=== PATIENT | male | born 1990 | race Caucasian/White ===

== ENCOUNTER 2016-04-16 17:20 | Emergency (ER) | payer SELFPAY ==
[~2016-04-16] VITALS: Ht 160 cm; Wt 52.0 kg
[2016-04-16 17:22] VITALS: BP 124/73; PULSE 92; RESP 12; TEMP 98.1; O2SAT 97
[2016-04-16 19:05] LABS: BLOOD, URINE NEG (NEG); COMMENT (UR) CULT NOT INDICATED; CULTURE IF INDICATED CULT NOT INDICATED; GLUCOSE,URINE NEG (NEG); KETONE, URINE NEG (NEG); NITRITE,URINE NEG (NEG); URINE COLOR YELLOW (YELLW/STRAW)
--- NOTE | 2016-04-16 19:47 | PD ---
HPI Chief Complaint: Flank/Kidney Pain Time Seen by Provider: 19:44 Travel History International Travel<30 days: No Contact w/Intl Traveler<30days: No Traveled to known affect area: No History of Present Illness HPI 25-year-old male presents to emergency Department with complaints of right flank pain. He states that he has been having pain on and off now for 8 months. He states the pain is intensified over the past 5 days. He has had some associated nausea and vomiting. He also states that the pain is very sharp and severe. It does radiate into his right abdomen. He has not noticed any increased frequency, dysuria or hematuria. He states the pain is a 9 out of 10 currently. There is no palliative activity. He denies any recent illness area no fever no chills. PFSH Past Medical History Medical History: Denies Significant Hx Immunizations Current: Yes Tetanus Vaccination: < 5 Years Influenza Vaccination: Yes Past Surgical History Narrative Surgical Appendectomy Social History Alcohol Use: No Tobacco Use: Yes Substance Use: No Allergies-Medications (Allergen,Severity, Reaction): Coded Allergies: No Known Allergies (Unverified , 04/16/16) Reported Meds & Prescriptions Reported Meds & Active Scripts Active Flexeril (Cyclobenzaprine HCl) 10 Mg Tab 10 Mg PO TID Diclofenac Sodium DR (Diclofenac Sodium) 75 Mg Tabdr 75 Mg PO BID Review of Systems Except as stated in HPI: all other systems reviewed are Neg Physical Exam Narrative GENERAL: Well-developed, well-nourished in no acute distress. Nontoxic appearing. HEAD: Normocephalic, atraumatic. EYES: Pupils equal round and reactive. Extraocular motions intact. No scleral icterus. No injection or drainage. ENT: TMs clear without erythema. The external auditory canals clear. Nose: clear . Posterior pharynx is pink and moist. No tonsillar edema or exudate. Uvula midline. Airway patent. NECK: Trachea midline.Supple, nontender, moves head freely. No central bony tenderness or spasm. CARDIOVASCULAR: Regular rate and rhythm without murmurs, gallops, or rubs. RESPIRATORY: Clear to auscultation. Breath sounds equal bilaterally. No wheezes , rales, or rhonchi. GASTROINTESTINAL: Abdomen soft, non-tender, nondistended. No hepato-splenomegaly , or palpable masses. No guarding. EXTREMITIES: No clubbing, cyanosis, or edema. No joint tenderness, effusion, or edema noted. BACK: Right paralumbar muscle tenderness without deformity or crepitance. No flank tenderness. Data Data Last Documented VS Vital Signs Date Time Temp Pulse Resp B/P Pulse Ox O2 Delivery O2 Flow Rate FiO2 04/16/16 19:23 16 04/16/16 17:22 98.1 92 124/73 97 Room Air Orders Urinalysis - C+S If Indicated (04/16/16 18:32) Ct Abd/Pel W/O Iv Contrast (04/16/16 19:40) Ibuprofen (Motrin) (04/16/16 22:45) Acetamin-Hydrocod 325-5 Mg ([place] 5-325 (04/16/16 22:45) Labs Laboratory Tests Test 04/16/16 18:40 Urine Color YELLOW Urine Turbidity CLEAR Urine pH 6.0 Urine Specific [place] 1.019 Urine Protein NEG mg/dL Urine Glucose (UA) NEG mg/dL Urine Ketones NEG mg/dL Urine Occult Blood NEG Urine Nitrite NEG Urine Bilirubin NEG Urine Urobilinogen LESS THAN 2.0 MG/DL Urine Leukocyte Esterase NEG Urine RBC 6 /hpf Urine WBC 1 /hpf Microscopic Urinalysis Comment CULT NOT INDICATED [facility] Medical Decision Making Medical Screen Exam Complete: Yes Emergency Medical Condition: Yes Medical Record Reviewed: Yes Interpretation(s) CT abdomen and pelvis: Nonobstructing right 2 mm right renal stone. No other acute pathology identified. Laboratory Tests Test 04/16/16 18:40 Urine Color YELLOW Urine Turbidity CLEAR Urine pH 6.0 Urine Specific [place] 1.019 Urine Protein NEG mg/dL Urine Glucose (UA) NEG mg/dL Urine Ketones NEG mg/dL Urine Occult Blood NEG Urine Nitrite NEG Urine Bilirubin NEG Urine Urobilinogen LESS THAN 2.0 MG/DL Urine Leukocyte Esterase NEG Urine RBC 6 /hpf Urine WBC 1 /hpf Microscopic Urinalysis Comment CULT NOT INDICATED Vital Signs Date Time Temp Pulse Resp B/P Pulse Ox O2 Delivery O2 Flow Rate FiO2 04/16/16 19:23 16 04/16/16 17:22 98.1 92 12 124/73 97 Room Air Differential Diagnosis MDM: High Differential diagnoses: AAA,Fracture, sprain, strain, HNP, nerve or vascular injury, epidural abscess, pilonidal cyst, pyelonephritis, UTI, nephrolithiasis, ureterolithiasis Narrative Course CT scan of the abdomen and pelvis show a nonobstructing right renal stone but no other acute pathology. Urinalysis shows only 6 RBCs otherwise unremarkable. Patient is given Lortab 5 mg and Motrin 800 mg by mouth. This is back pain, nephrolithiasis Diagnosis Primary Impression: Back pain Qualified Code: M54.5 - Chronic right-sided low back pain without sciatica Additional Impression: Right nephrolithiasis Patient Instructions: Narcotic given in the ED, General Instructions Departure Forms: Work Release Special Instructions: No work 2 days. Additional Instructions: Rest. Ice for the next 3 days followed by heat . Flexeril and Voltaren. Follow-up with a primary care doctor in 3-7 days. Return to the ER for emergencies. Med/Other Pt SpecificInfo: Prescription(s) given Scripts Cyclobenzaprine (Flexeril)10 Mg Tab10 Mg PO TID #30 TAB Prov:Winter Wayne DO 04/16/[address] 75 Mg Tabdr75 Mg PO BID #20 TAB Prov:Winter Wayne DO 04/16/16 Disposition: 01 DISCHARGE HOME Condition: Stable James Rodriguez Apr 16, 2016 19:47
[2016-04-16] MEDS ORDERED: CYCL1TAB29 PO (22:36)
[2016-04-16] MEDS ORDERED: DICL75TA PO (22:36)
--- NOTE | 2016-04-16 22:36 | RADRPT ---
EXAM DATE/TIME: 04/16/2016 20:32 [facility] COMPARISON: No previous studies available for comparison. INDICATIONS: Right low back and flank pain. Burning urination. ORAL CONTRAST: No oral contrast ingested. RADIATION DOSE: 5.93 CTDIvol (mGy) MEDICAL HISTORY: None SURGICAL HISTORY: None. ENCOUNTER: Initial ACUITY: 4 - 6 months PAIN SCALE: 6/10 LOCATION: Right flank TECHNIQUE: Volumetric scanning of the abdomen and pelvis was performed. Using automated exposure control and ad justment of the mA and/or kV according to patient size, radiation dose was kept as low as reasonably achievable to obtain optimal diagnostic quality images. FINDINGS: There is a 2 mm non-obstructing right renal stone seen. No hydronephrosis identified. The ureters a re normal bilaterally. The liver, spleen, pancreas and adrenal glands are normal for a non-contrast CT examination. The bow els unremarkable. The structures in the pelvis are unremarkable. The lung bases are clear. The bony st ructures are grossly intact. CONCLUSION: 1. A 2 mm non-obstructing right renal stone. Enoc Martinez MD on April 16, 2016 at 21:24 Board Certified Radiologist. This report was verified electronically.
[2016-04-16] MEDS ORDERED: ACETAMINOPHEN/HYDROcodone 325 MG/5 MG TAB PO ONE (22:45)
[2016-04-16] MEDS ORDERED: IBUPROFEN 800 MG TAB PO ONE (22:45)
== END 2016-04-16 23:10 | disposition home or self-care (01) ==
LOC: NEPB 17:20
DX: M54.5 Low back pain (principal); N20.0 Calculus of kidney; R11.2 Nausea with vomiting, unspecified; Z72.0 Tobacco use
CPT/HCPCS: 74176; 81001

== ENCOUNTER 2017-01-24 09:22 | Emergency (ER) | payer OTHER ==
[~2017-01-24] VITALS: Ht 157.5 cm; Wt 52.0 kg
[~2017-01-24 09:22] MED LIST: CYCL10TA PO; DICL75TA PO
[2017-01-24 09:25] VITALS: BP 126/67; PULSE 89; RESP 13; TEMP 98.8; O2SAT 99
[2017-01-24] MEDS ORDERED: RESP: LIDOCAINE HCL 4% PF 5 ML NEB NEB ONE (10:15)
[2017-01-24] MEDS ORDERED: predniSONE 20 MG TAB PO ONE (10:15)
[2017-01-24] MEDS ORDERED: RESP: ALBUTEROL 2.5 MG/IPRATROPIUM 0.5 MG NEB (SCH) NEB ONE (10:15)
--- NOTE | 2017-01-24 10:16 | PD ---
HPI Chief Complaint: Cold / Flu Symptoms Time Seen by Provider: 09:32 Travel History International Travel<30 days: No Contact w/Intl Traveler<30days: No Traveled to known affect area: No History of Present Illness HPI The patient is a 26-year-old male from [place] who presents to the emergency department for chest pain and cough. The patient states he moved to the local area from [place] one year ago. He notes a 2 week history of productive cough producing white sputum, anterior chest wall pain worse with coughing, and wheezing. The patient does have a history of tobacco use and marijuana use, denies any history of chronic underlying pulmonary conditions. He has had subjective fevers at home, denies any associated nausea, vomiting, abdominal pain, diarrhea, or myalgias. Symptoms are moderate, there are no current alleviating or exacerbating factors. [facility] Past Medical History Medical History: Denies Significant Hx Immunizations Current: Yes Past Surgical History Appendectomy: Yes Social History Alcohol Use: No Tobacco Use: Yes Substance Use: No Allergies-Medications (Allergen,Severity, Reaction): Coded Allergies: No Known Allergies (Unverified Adverse Reaction, Unknown, 01/24/17) Reported Meds & Prescriptions Reported Meds & Active Scripts Active No Active Prescriptions or Reported Medications Review of Systems Except as stated in HPI: all other systems reviewed are Neg General / Constitutional: Positive: Fever (subjective) Cardiovascular: Positive: Chest Pain or Discomfort (worse with coughing) Respiratory: Positive: Cough, Shortness of Breath, Wheezing Gastrointestinal: No: Nausea, Vomiting, Abdominal Pain Musculoskeletal: No: Weakness Neurologic: No: Dizziness Physical Exam Narrative GENERAL: Awake, alert, pleasant 26-year-old male who appears his stated age and is in no acute respiratory distress. SKIN: Focused skin assessment warm/dry. HEAD: Atraumatic. Normocephalic. EYES: Pupils equal and round. No scleral icterus. No injection or drainage. ENT: No nasal bleeding or discharge. Cobblestoning of posterior [place] but no exudate noted. NECK: Trachea midline. No JVD. CARDIOVASCULAR: Regular rate and rhythm. No murmur appreciated. Heart rate in the 80s. Palpation the chest wall reproduces symptoms. RESPIRATORY: No accessory muscle use. Few scattered wheezes. GASTROINTESTINAL: Abdomen soft, non-tender, nondistended. No guarding or rigidity. No rebound tenderness. MUSCULOSKELETAL: No obvious deformities. No clubbing. No cyanosis. No edema. NEUROLOGICAL: Awake and alert. No obvious cranial nerve deficits. Motor grossly within normal limits. Normal speech. PSYCHIATRIC: Appropriate mood and affect; insight and judgment normal. Data Data Last Documented VS Vital Signs Date Time Temp Pulse Resp B/P (MAP) Pulse Ox O2 Delivery O2 Flow Rate FiO2 01/24/17 09:25 98.8 89 13 126/67 (86) 99 Orders Orders Albuterol-Ipratropium Neb (Duoneb Neb) (01/24/17 10:15) Lidocaine Pf 4% Neb (Lidocaine Pf 4% Neb (01/24/17 10:15) Chest, Single Ap (01/24/17 ) Prednisone (Deltasone) (01/24/17 10:15) MDM Medical Decision Making Medical Screen Exam Complete: Yes Emergency Medical Condition: Yes Medical Record Reviewed: Yes Interpretation(s) EKG reveals normal sinus rhythm with a rate 88. RSR prime in V1. Early repolarization noted in V3. Last Impressions Chest X-Ray 01/24/17 0000 Signed Impressions: Service Date/Time: Tuesday, January 24, 2017 10:26 - CONCLUSION: No acute disease. Tor Morales MD FACR Differential Diagnosis Differential diagnosis includes bronchitis, pneumonia, URI, viral syndrome, pulmonary embolism, pericarditis, myocarditis. Narrative Course EKG was ordered and interpreted. Chest x-ray was obtained. The patient was administered prednisone and DuoNeb with respiratory lidocaine. Chest x-rays negative, no evidence of pneumonia. The patient appears to have bronchitis with secondary musculoskeletal pain secondary to coughing. The patient was placed on prednisone, albuterol inhaler, and Zithromax. He is advised to follow -up with a primary physician. Diagnosis Primary Impression: Bronchitis Patient Instructions: General Instructions Additional Instructions: Medications as directed. Stop smoking. Follow-up with a primary physician. Med/Other Pt SpecificInfo: Prescription(s) given Scripts Azithromycin (Zithromax Z-Eduin) 250 Mg Dspk 250 MG PO DIRECTED for Infection, #1 DSPK 0 Refills 500 MG (2 tabs) day 1, then 1 tab days 2-5. Prov: Chan Warren MD 01/24/17 Albuterol 18 GM Inh (Ventolin Hfa 18 GM Inh) 90 Mcg/Act Aer 2 PUFF INH Q6H Y for SHORTNESS OF BREATH, #1 INHALER 0 Refills Prov: Chan Warren MD 01/24/17 Prednisone (Deltasone) 20 Mg Tab 40 MG PO DAILY for 4 Days, #8 TAB 0 Refills Prov: Chan Warren MD 01/24/17 Disposition: 01 DISCHARGE HOME Condition: Stable Chan Warren MD Jan 24, 2017 10:16
--- NOTE | 2017-01-24 10:30 | RADRPT ---
EXAM DATE/TIME: 01/24/2017 10:26 [facility] COMPARISON: No previous studies available for comparison. INDICATIONS : Chest pain and cough for 2 months MEDICAL HISTORY : None. SURGICAL HISTORY : None. ENCOUNTER: Initial ACUITY: 2 months PAIN SCORE: 5/10 LOCATION: Bilateral chest FINDINGS: A single view of the chest demonstrates the lungs to be symmetrically aerated without evidence of mas s, infiltrate or effusion. The cardiomediastinal contours are unremarkable. Osseous structures are intact. CONCLUSION: No acute disease. Tor Morales MD FACR on January 24, 2017 at 10:28 Board Certified Radiologist. This report was verified electronically.
[2017-01-24] MEDS ORDERED: PRED-503 PO (10:45)
[2017-01-24] MEDS ORDERED: ZITHTAB PO (10:45)
[2017-01-24] MEDS ORDERED: VENTAER INH (10:45)
--- NOTE | 2017-01-24 17:57 | EKG ---
Date Performed: 01/24/2017 Time Performed: 09:38:53 PTAGE: 26 years EKG: Sinus rhythm POSSIBLE RIGHT VENTRICULAR CONDUCTION DELAY ST ELEVATION, PROBABLY EARLY REPOLARIZATION BORDERLINE E CG NO PREVIOUS TRACING DOCTOR: Kirsten Wharton Interpretating Date/Time 01/24/2017 17:56:04
== END 2017-01-24 11:10 ==
LOC: NEPD 09:22
DX: J20.9 Acute bronchitis, unspecified (principal); Z72.0 Tobacco use
CPT/HCPCS: 71010; 93005; 94664; 99284; J7512

== ENCOUNTER 2017-03-23 13:35 | Emergency (ER) | payer OTHER ==
[~2017-03-23] VITALS: Ht 157.5 cm; Wt 52.0 kg
[~2017-03-23 13:35] MED LIST changes: -CYCL10TA PO; -DICL75TA PO; +PRED-503 PO; +VENTAER INH; +ZITHTAB PO
[2017-03-23 13:36] VITALS: BP 130/75; PULSE 87; RESP 14; TEMP 98.2; O2SAT 100
[2017-03-23] MEDS ORDERED: CEPHALEXIN MONOHYDRATE 500 MG CAP PO ONE (14:15)
[2017-03-23] MEDS ORDERED: LIDOCAINE 1%/EPINEPHrine 1:100,000 SOLN 20 ML VIAL INFIL ONE (14:15)
[2017-03-23] MEDS ORDERED: SULFAMETHOXAZOLE-TRIMETHOPRIM DS 800-160 MG TAB PO ONE (14:15)
[2017-03-23] MEDS ORDERED: BACT800T5 PO (14:30)
[2017-03-23] MEDS ORDERED: CEPH-460 PO (14:30)
--- NOTE | 2017-03-23 14:35 | PD ---
HPI Chief Complaint: Skin Problem Time Seen by Provider: 14:03 Travel History International Travel<30 days: No Contact w/Intl Traveler<30days: No Traveled to known affect area: No History of Present Illness HPI This patient speaks [place], he prefers that his family member who is present at bedside translate for him. 26-year-old male presents for evaluation of a painful lump on his right buttocks. He first developed it yesterday. He describes it as throbbing, constant, worse with palpation. Denies any drainage , fevers or chills. He has never had this problem before. No other complaints. PFSH Past Medical History Immunizations Current: Yes Tetanus Vaccination: > 5 Years Past Surgical History Appendectomy: Yes Social History Alcohol Use: No Tobacco Use: Yes Substance Use: No Allergies-Medications (Allergen,Severity, Reaction): Coded Allergies: No Known Allergies (Unverified Adverse Reaction, Unknown, 01/24/17) Reported Meds & Prescriptions Reported Meds & Active Scripts Active Keflex (Cephalexin) 500 Mg Capsule 500 Mg PO Q8H 10 Days Bactrim DS (Sulfamethoxazole-Trimethoprim) 800-160 Mg Tab 1 Tab PO BID Review of Systems Except as stated in HPI: all other systems reviewed are Neg Physical Exam Narrative GENERAL: Well developed well-nourished male in no acute distress SKIN: Warm and dry. 2 cm fluctuant excoriated abscess to the right buttocks with some surrounding erythema and induration. No perirectal involvement. HEAD: Atraumatic. Normocephalic. EYES: Pupils equal and round. No scleral icterus. No injection or drainage. ENT: No nasal bleeding or discharge. Mucous membranes pink and moist. NECK: Trachea midline. No JVD. CARDIOVASCULAR: Regular rate and rhythm. No murmur appreciated. RESPIRATORY: No accessory muscle use. Clear to auscultation. Breath sounds equal bilaterally. GASTROINTESTINAL: Abdomen soft, non-tender, nondistended. Hepatic and splenic margins not palpable. MUSCULOSKELETAL: No obvious deformities. No clubbing. No cyanosis. No edema. NEUROLOGICAL: Awake and alert. No obvious cranial nerve deficits. Motor grossly within normal limits. Normal speech. PSYCHIATRIC: Appropriate mood and affect; insight and judgment normal. Data Data Last Documented VS Vital Signs Date Time Temp Pulse Resp B/P (MAP) Pulse Ox O2 Delivery O2 Flow Rate FiO2 03/23/17 14:02 18 1/7/18 13:36 98.2 87 130/75 (93) 100 Orders Orders Lidocai-Epi 1%-1:100,000 Inj (Xylocaine- (03/23/17 14:15) Sulfamet-Trimeth Ds 800-160 Mg (Bactrim (03/23/17 14:15) Cephalexin (Keflex) (03/23/17 14:15) Wound Culture And Gram Stain (03/23/17 14:08) [facility] Medical Decision Making Medical Screen Exam Complete: Yes Emergency Medical Condition: Yes Medical Record Reviewed: Yes Differential Diagnosis Cutaneous abscess, myositis, cellulitis, perirectal abscess Narrative Course The patient has a right buttocks abscess. Incision and drainage was performed, he verbally consented. Wound culture performed. He was given Bactrim and Keflex. Discussed signs and symptoms that would warrant returning to the emergency room. He is stable for discharge. Procedures Procedure Narrative INCISION AND DRAINAGE OF ABSCESS: The area was prepped and was sterilely draped. A subcutaneous wheal of 1% Xylocaine with epinephrine with a total number 5 mL was used to anesthetize the area. The area was properly anesthetized. A number 11 scalpel was used to make a 1.5-cm incision across the area of the abscess. Cultures were obtained. The abscess was drained an irrigated with normal saline. Diagnosis Primary Impression: Abscess of buttock, right Additional Instructions: Medication as prescribed. Warm bath twice a day 20 minutes at a time. Return for any acutely new or worsening symptoms. Med/Other Pt SpecificInfo: Prescription(s) given, Wound Care Scripts Cephalexin (Keflex) 500 Mg Capsule 500 MG PO Q8H for Infection for 10 Days, #30 CAP 0 Refills Prov: Kentrell Herrmann MD 03/23/17 Sulfamethoxazole-Trimethoprim (Bactrim DS) 800-160 Mg Tab 1 TAB PO BID for Infection, #20 TAB 0 Refills Prov: Kentrell Herrmann MD 03/23/17 Disposition: 01 DISCHARGE HOME Condition: Stable Walker Knight Mar 23, 2017 14:35
== END 2017-03-23 15:29 | disposition home or self-care (01) ==
LOC: NEPE 13:35
DX: L02.31 Cutaneous abscess of buttock (principal); A49.02 Methicillin resistant Staphylococcus aureus infection, unspecified site; Z72.0 Tobacco use
CPT/HCPCS: 10060; 86403; 87070; 87186; 87205

== ENCOUNTER 2017-04-18 08:43 | Emergency (ER) | payer OTHER ==
[~2017-04-18] VITALS: Ht 154.9 cm; Wt 52.2 kg
[~2017-04-18 08:43] MED LIST changes: +BACT800T5 PO; +CEPH-460 PO; -PRED-503 PO; -VENTAER INH; -ZITHTAB PO
[2017-04-18 08:46] VITALS: BP 125/59; PULSE 104; RESP 18; TEMP 97.3; O2SAT 100
[2017-04-18] MEDS ORDERED: KETOROLAC TROMETHAMINE 30 MG/ML (IVP) VIAL IVP ONE (09:45)
[2017-04-18 09:54] LABS: AUTOMATED NEUTROPHIL # 5.9 TH/MM3 (1.8-7.7); BASOPHIL % 0.4 % (0.0-2.0); EOSINOPHIL # 0.1 TH/MM3 (0-0.4); EOSINOPHIL % 0.8 % (0.0-4.0); HEMATOCRIT 46.1 % (39.0-51.0); HEMOGLOBIN 15.5 GM/DL (13.0-17.0); LYMPH % 22.9 % (9.0-44.0); LYMPHOCYTE # 1.9 TH/MM3 (1.0-4.8); MEAN CELL VOLUME 85.3 FL (80.0-100.0); MEAN CORPUSCULAR HEMOGLOBIN 28.6 PG (27.0-34.0); MEAN CORPUSCULAR HGB CONC 33.5 % (32.0-36.0); MEAN PLATELET VOLUME 8.9 FL (7.0-11.0); MONO % 5.4 % (0.0-8.0); MONOCYTE # 0.5 TH/MM3 (0-0.9); NEUT % 70.5 % (16.0-70.0); PLATELET COUNT 213 TH/MM3 (150-450); RED CELL DISTRIBUTION WIDTH 13.4 % (11.6-17.2); WHITE BLOOD COUNT 8.4 TH/MM3 (4.0-11.0)
[2017-04-18 10:08] LABS: BILIRUBIN, URINE NEG (NEG); BLOOD, URINE SMALL (NEG); GLUCOSE,URINE NEG (NEG); KETONE, URINE NEG (NEG); MUCUS URINE FEW /lpf (OCC); NITRITE,URINE NEG (NEG); PH, URINE 5.5 (5.0-8.5); URINE COLOR YELLOW (YELLW/STRAW); URINE LEUKOCYTE ESTERASE NEG (NEG)
[2017-04-18 10:11] LABS: ALBUMIN 4.7 GM/DL (3.4-5.0); ALT (GPT) 28 U/L (12-78); AST (GOT) 25 U/L (15-37); BLOOD UREA NITROGEN 16 MG/DL (7-18); CALCIUM 9.6 MG/DL (8.5-10.1); CHLORIDE 105 MEQ/L (98-107); CREATININE 0.88 MG/DL (0.60-1.30); GLOMERULAR FILTRATION RATE 103 ML/MIN (>89); GLUCOSE,RANDOM 97 MG/DL (74-106); SODIUM (NA) 138 MEQ/L (136-145)
[2017-04-18 10:14] LABS: ALKALINE PHOSPHATASE 67 U/L (45-117); TOTAL BILIRUBIN ADULT 0.5 MG/DL (0.2-1.0); TOTAL PROTEIN 8.2 GM/DL (6.4-8.2)
[2017-04-18] MEDS ORDERED: NAPR500T2 PO (10:17)
--- NOTE | 2017-04-18 10:18 | PD ---
HPI Chief Complaint: Flank/Kidney Pain Time Seen by Provider: 09:18 Travel History International Travel<30 days: No Contact w/Intl Traveler<30days: No Traveled to known affect area: No History of Present Illness HPI 26-year-old man, history obtained with the help of [place] director speech language. He has had back pain off and on for years. 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 Over the past 2 days he has had worsening pain, mostly on the right flank, and a little bit on the left costal margin more anteriorly. Worse with moving. No urinary changes. No fevers or chills. No weakness in his legs. Does get occasional numbness in both feet. History Past Medical History Medical History: Denies Significant Hx Social History Alcohol Use: No Tobacco Use: Yes Allergies-Medications (Allergen,Severity, Reaction): Coded Allergies: No Known Allergies (Unverified Adverse Reaction, Unknown, 01/24/17) Reported Meds & Prescriptions Reported Meds & Active Scripts Active Keflex (Cephalexin) 500 Mg Capsule 500 Mg PO Q8H 10 Days Bactrim DS (Sulfamethoxazole-Trimethoprim) 800-160 Mg Tab 1 Tab PO BID Review of Systems Except as stated in HPI: all other systems reviewed are Neg Physical Exam Narrative GENERAL: Well-appearing 18-year-old man, no acute distress. SKIN: Focused skin assessment warm/dry. HEAD: Atraumatic. Normocephalic. EYES: Pupils equal and round. No scleral icterus. No injection or drainage. ENT: No nasal bleeding or discharge. Mucous membranes pink and moist. NECK: Trachea midline. No JVD. CARDIOVASCULAR: Regular rate and rhythm. No murmur appreciated. RESPIRATORY: No accessory muscle use. Clear to auscultation. Breath sounds equal bilaterally. GASTROINTESTINAL: Abdomen soft, non-tender, nondistended. Hepatic and splenic margins not palpable. No significant CVA tenderness to percussion. MUSCULOSKELETAL: No obvious deformities. No clubbing. No cyanosis. No edema. NEUROLOGICAL: Awake and alert. No obvious cranial nerve deficits. Motor grossly within normal limits. Normal speech. Normal gait. PSYCHIATRIC: Appropriate mood and affect; insight and judgment normal. Data Data Last Documented VS Vital Signs Date Time Temp Pulse Resp B/P (MAP) Pulse Ox O2 Delivery O2 Flow Rate FiO2 04/18/17 08:46 97.3 104 18 125/59 (81) 100 Orders Orders Complete Blood Count With Diff (04/18/17 09:19) Comprehensive Metabolic Panel (04/18/17 09:19) Urinalysis - C+S If Indicated (04/18/17 09:19) Iv Access Insert/Monitor (04/18/17 09:19) Ketorolac Inj (Toradol Inj) (04/18/17 09:45) Labs Laboratory Tests Test 04/18/17 09:00 White Blood Count 8.4 TH/MM3 Red Blood Count 5.40 MIL/MM3 Hemoglobin 15.5 GM/DL Hematocrit 46.1 % Mean Corpuscular Volume 85.3 FL Mean Corpuscular Hemoglobin 28.6 PG Mean Corpuscular Hemoglobin Concent 33.5 % Red Cell Distribution Width 13.4 % Platelet Count 213 TH/MM3 Mean Platelet Volume 8.9 FL Neutrophils (%) (Auto) 70.5 % Lymphocytes (%) (Auto) 22.9 % Monocytes (%) (Auto) 5.4 % Eosinophils (%) (Auto) 0.8 % Basophils (%) (Auto) 0.4 % Neutrophils # (Auto) 5.9 TH/MM3 Lymphocytes # (Auto) 1.9 TH/MM3 Monocytes # (Auto) 0.5 TH/MM3 Eosinophils # (Auto) 0.1 TH/MM3 Basophils # (Auto) 0.0 TH/MM3 CBC Comment DIFF FINAL Differential Comment Urine Color YELLOW Urine Turbidity CLEAR Urine pH 5.5 Urine Specific [place] 1.023 Urine Protein NEG mg/dL Urine Glucose (UA) NEG mg/dL Urine Ketones NEG mg/dL Urine Occult Blood SMALL Urine Nitrite NEG Urine Bilirubin NEG Urine Urobilinogen LESS THAN 2.0 MG/DL Urine Leukocyte Esterase NEG Urine RBC 3 /hpf Urine WBC 1 /hpf Urine Mucus FEW /lpf Microscopic Urinalysis Comment CULT NOT INDICATED Blood Urea Nitrogen 16 MG/DL Creatinine 0.88 MG/DL Random Glucose 97 MG/DL Total Protein 8.2 GM/DL Albumin 4.7 GM/DL Calcium Level 9.6 MG/DL Alkaline Phosphatase 67 U/L Aspartate Amino Transf (AST/SGOT) 25 U/L Alanine Aminotransferase (ALT/SGPT) 28 U/L Total Bilirubin 0.5 MG/DL Sodium Level 138 MEQ/L Potassium Level 3.9 MEQ/L Chloride Level 105 MEQ/L Carbon Dioxide Level 28.0 MEQ/L Anion Gap 5 MEQ/L Estimat Glomerular Filtration Rate 103 ML/MIN [facility] Medical Decision Making Medical Screen Exam Complete: Yes Emergency Medical Condition: Yes Interpretation(s) LABS: CBC is unremarkable. CMP is unremarkable. UA is negative. Differential Diagnosis Strain or sprain, acute on chronic back pain, renal lithiasis, UTI, dissection, other Narrative Course Medical decision making appears a 18-year-old man who presents to the emergency department with back pain. This is been ongoing for several years, seems to be more musculoskeletal. There is no blood to suggest renal lithiasis. Recommend against imaging at this time. Recommend NSAIDs as needed for pain. Outpatient follow-up. Diagnosis Primary Impression: Back pain Additional Instructions: Take Naprosyn as needed for pain. Follow-up with her primary doctor in the next 2-4 days if symptoms persist. Med/Other Pt SpecificInfo: Prescription(s) given, No Change to Meds Scripts Naproxen (Naproxen) 500 Mg Tab 500 MG PO BID for 10 Days, #20 TAB 0 Refills Prov: Eamon Quezada MD 04/18/17 Disposition: 01 DISCHARGE HOME Condition: Stable Eamon Quezada MD Apr 18, 2017 10:18
== END 2017-04-18 11:06 | disposition home or self-care (01) ==
LOC: NEPE 08:43
DX: M54.9 Dorsalgia, unspecified (principal)
CPT/HCPCS: 80053; 81001; 85025; 96374; 99284; J1885